=== PATIENT | female | born 1950 | race Caucasian/White ===

== ENCOUNTER → 2022-10-19 | Outpatient (CLI) | payer MEDICARE ==
[~2022-10-19] MED LIST: ASPI-1005 PO; ATOR20TA65 PO; CINN500C PO; CITA-107 PO; HYDR-4457 PO; LEVO75TA10 PO; LISI2.5T13 PO; MELO-108 PO; PANT20TA18 PO; REGADENOSON 0.4 MG/5 ML PF SYG IVP SCH; ROPI12TA2 PO
== END | disposition home or self-care (01) ==
LOC: SHCH 08:48
PROVIDERS: ATTEND Internal Medicine
DX: R94.39 Abnormal result of other cardiovascular function study (principal); R06.02 Shortness of breath
CPT/HCPCS: 78452; 96374; 93017; J2785; A9500 ×2

== ENCOUNTER 2022-11-12 05:53 | Day surgery (SDC) | payer MEDICARE ==
[2022-11-10 16:01] LABS: BASOPHILS % (AUTO) 0.3 % (0.0-5.0); EOSINOPHILS % (AUTO) 1.2 % (0.0-8.0); HEMATOCRIT 45.3 % (36-48); LYMPHOCYTES % (AUTO) 34.3 % (21.0-51.0); MEAN CORPUSCULAR HEMOGLOBIN 30.7 pg (27.0-33.0); MEAN CORPUSCULAR HGB CONC 32.7 g/dL (32.0-36.0); MONOCYTES % (AUTO) 7.9 % (3.0-13.0); NEUTROPHILS % (AUTO) 56.1 % (40.0-77.0); PLATELET COUNT (AUTO) 232 K/uL (130-400); RED BLOOD CELL COUNT(AUTO) 4.82 MIL/uL (4.00-5.50); RED CELL DISTRIBUTION WIDTH 13.2 % (11.0-15.5)
[2022-11-10 16:07] LABS: APPEARANCE,URINE CLEAR (CLEAR); BILIRUBIN,URINE NEGATIVE (NEGATIVE); COLOR,URINE COLORLESS (YELLOW); GLUCOSE, URINE (UA) NEGATIVE (NEGATIVE); KETONES,URINE NEGATIVE (NEGATIVE); LEUKOCYTE ESTERASE ,URINE NEGATIVE Leu/uL (NEGATIVE); NITRATE,URINE NEGATIVE (NEGATIVE); OCCULT BLOOD,URINE NEGATIVE (NEGATIVE); PH,URINE 6.5 (5.0-8.0); PROTEIN,URINE NEGATIVE (NEGATIVE); UROBILINOGEN,URINE 0.2 mg/dL (0.2-1.0)
[2022-11-10 16:16] LABS: INR 0.99 (0.85-1.15); PROTHROMBIN TIME 10.8 SEC (9.6-11.6)
[2022-11-10 16:17] LABS: CREATININE 0.9 mg/dL (0.5-1.5); POTASSIUM 4.3 mmol/L (3.5-5.1)
[2022-11-10 16:18] LABS: PARTIAL THROMBOPLASTIN TIME 32.3 SEC (26.3-35.5)
[2022-11-10 16:21] VITALS: BP 154/70
[2022-11-10 16:29] LABS: B-TYPE NATRIURETIC PEPTIDE 7 pg/mL (0-100)
[2022-11-10 16:45] LABS: RBC,URINE 0-1 /HPF (0-1); SQUAMOUS EPITHELIAL CELL,UR RARE /HPF (0-2); WBC,URINE 0-1 /HPF (0-1)
[~2022-11-12] VITALS: Ht 162.6 cm; Wt 93.3 kg
[2022-11-12] VITALS (8 sets, daily range): BP systolic 108–139; BP diastolic 51–74
[~2022-11-12 05:53] MED LIST changes: -ASPI-1005 PO; -ATOR20TA65 PO; -CINN500C PO; +FURO20TA4 PO; -HYDR-4457 PO; +LEVO75CA5 PO; -REGADENOSON 0.4 MG/5 ML PF SYG IVP SCH; +ROPI0.257 PO; -ROPI12TA2 PO; +ROSU20TA31 PO
[2022-11-12] MEDS ORDERED: 0.9%NACL 1000ML 1,000 ML IV ONE (06:24)
[2022-11-12] MEDS ORDERED: VERAPAMIL HCL 2.5 MG/ML VIAL ONE (07:11)
[2022-11-12] MEDS ORDERED: MIDAZOLAM HCL 1 MG/ML 2ML VIAL ONE (07:12)
[2022-11-12] MEDS ORDERED: FENTANYL CITRATE PF 50 MCG/1 ML 2ML VIAL ONE (07:12)
[2022-11-12] MEDS ORDERED: HEPARIN 10,000 UNIT/10ML (1,000 UNIT/ML) VIAL ONE (07:12)
[2022-11-12] MEDS ORDERED: IOHEXOL 350 MG/ML 100ML INFUS..BTL IV ONE (07:12)
[2022-11-12] MEDS ORDERED: LIDOCAINE HCL 400MG/20ML VIAL ONE (07:12)
[2022-11-12] MEDS ORDERED: NITROGLYCERIN 50MG VIAL ONE (07:12)
[2022-11-12] MEDS ORDERED: 0.9%NACL 1000ML 1,000 ML IV SCH (08:30)
[2022-11-12] MEDS ORDERED: GLUCAGON 1MG KIT 1 MG ML IM PRN (08:30)
[2022-11-12] MEDS ORDERED: DEXTROSE 50%-WATER 50 ML DISP.SYRIN IV PRN (08:30)
== END 2022-11-12 11:40 | disposition home or self-care (01) ==
LOC: DAH 05:53
PROVIDERS: ATTEND Internal Medicine
DX: I25.10 Atherosclerotic heart disease of native coronary artery without angina pectoris (principal); E78.5 Hyperlipidemia, unspecified; E03.9 Hypothyroidism, unspecified; M19.90 Unspecified osteoarthritis, unspecified site; E11.9 Type 2 diabetes mellitus without complications; J44.9 Chronic obstructive pulmonary disease, unspecified; Z79.01 Long term (current) use of anticoagulants; Z88.8 Allergy status to other drugs, medicaments and biological substances; Z88.0 Allergy status to penicillin; Z90.89 Acquired absence of other organs; Z90.49 Acquired absence of other specified parts of digestive tract; Z90.710 Acquired absence of both cervix and uterus; Z82.49 Family history of ischemic heart disease and other diseases of the circulatory system; Z83.3 Family history of diabetes mellitus; Z83.438 Family history of other disorder of lipoprotein metabolism and other lipidemia; Z80.9 Family history of malignant neoplasm, unspecified; Z98.890 Other specified postprocedural states; Z87.891 Personal history of nicotine dependence; Z72.89 Other problems related to lifestyle
CPT/HCPCS: 80048; 83880; 85025; 85610; 85730; 81001; 36415; 71045; 93005; 93458; 82948 ×2; C1769; C1894; J3010; J3490 ×3; J7030; J1644 ×2; J2250; Q9967; A4215; A4222; A4221; A4663; A4216; A4606; Q9965; A4223 ×3; 99156; 99157

== ENCOUNTER 2025-01-02 06:52 | Observation (INO) | payer OTHER ==
[2024-12-27 11:17] VITALS: BP 141/58; PULSE 63; RESP 18; TEMP 97.5
[2024-12-27 11:24] LABS: BASOPHILS # (AUTO) 0.02 K/uL (0.00-0.20); BASOPHILS % (AUTO) 0.3 % (0.0-5.0); EOSINOPHILS % (AUTO) 1.5 % (0.0-8.0); HEMATOCRIT 42.9 % (36-48); IMMATURE GRANULOCYTE ABSOLUTE 0.01 K/uL (0-1); LYMPHOCYTES # (AUTO) 2.5 K/uL (1.0-4.8); LYMPHOCYTES % (AUTO) 38.4 % (21.0-51.0); MEAN CORPUSCULAR HEMOGLOBIN 30.5 pg (27.0-33.0); MEAN CORPUSCULAR HGB CONC 33.1 g/dL (32.0-36.0); MEAN CORPUSCULAR VOLUME 92.3 fL (79-99); MONOCYTES # (AUTO) 0.5 K/uL (0.1-1.0); MONOCYTES % (AUTO) 8.2 % (3.0-13.0); NEUTROPHILS # (AUTO) 3.3 K/uL (1.8-7.7); NEUTROPHILS % (AUTO) 51.4 % (40.0-77.0); PLATELET COUNT (AUTO) 206 K/uL (130-400); RED BLOOD CELL COUNT(AUTO) 4.65 MIL/uL (4.00-5.50); RED CELL DISTRIBUTION WIDTH 13.6 % (11.0-15.5); WHITE BLOOD COUNT (AUTO) 6.5 K/uL (4.8-10.8)
[2024-12-27 11:32] LABS: APPEARANCE,URINE CLEAR (CLEAR); BILIRUBIN,URINE NEGATIVE (NEGATIVE); COLOR,URINE COLORLESS (YELLOW); GLUCOSE, URINE (UA) NEGATIVE (NEGATIVE); KETONES,URINE NEGATIVE (NEGATIVE); LEUKOCYTE ESTERASE ,URINE NEGATIVE Leu/uL (NEGATIVE); NITRATE,URINE NEGATIVE (NEGATIVE); OCCULT BLOOD,URINE NEGATIVE (NEGATIVE); PH,URINE 6.5 (5.0-8.0); PROTEIN,URINE NEGATIVE (NEGATIVE); UROBILINOGEN,URINE 0.2 mg/dL (0.2-1.0)
[2024-12-27 11:33] LABS: ADD UA MICROSCOPIC NO
[2024-12-27 11:35] LABS: INR 1.06 (0.85-1.15); PROTHROMBIN TIME 11.2 SEC (9.6-11.6)
--- NOTE | 2024-12-27 11:35 | NUR ---
RE: IS IS INITIAL TEACHING DONE BY RT TAMMY DURING PREOP
[2024-12-27 11:37] LABS: PARTIAL THROMBOPLASTIN TIME 30.8 SEC (26.3-35.5)
[~2025-01-02] VITALS: Ht 162.6 cm; Wt 93.9 kg
[2025-01-02] VITALS (31 sets, daily range): BP systolic 119–159; BP diastolic 57–84; PULSE 71–99; RESP 15–20; TEMP 97.1–98.2; O2SAT 99
[~2025-01-02 06:52] MED LIST changes: +LEVO100C5 PO; -LEVO75CA5 PO; -LEVO75TA10 PO; -MELO-108 PO; -ROPI0.257 PO; -ROSU20TA31 PO; +ROSU20TA98 PO
[2025-01-02] MEDS ORDERED: VIT1CAPS5 PO (07:42)
[2025-01-02] MEDS ORDERED: ketOROlac 30MG VIAL (30MG/ML) ONE (07:42)
[2025-01-02] MEDS ORDERED: TRANEXAMIC ACID 1000MG/10ML ONE (07:42)
[2025-01-02] MEDS ORDERED: MELO-108 PO (07:42)
[2025-01-02] MEDS ORDERED: ROPivacaine 0.5% 5MG/ML 30ML ONE (07:42)
[2025-01-02] MEDS: ROPivacaine 0.5% 5MG/ML 30ML IJ ONE (07:49)
[2025-01-02] MEDS: 0.9%NACL 1000ML 1,000 ML IV ONE (07:54)
[2025-01-02] MEDS ORDERED: ALBUMIN (HUMAN) 5% 250 ML IV ONE (08:25)
[2025-01-02] MEDS ORDERED: LIDOCAINE PF 100MG/5ML (2%) SYRINGE 5ML ONE (08:26)
[2025-01-02] MEDS ORDERED: ketaMINE 50MG/ML SYRINGE 50 MG/ML DISP.SYRIN ONE (08:26)
[2025-01-02] MEDS ORDERED: ondanSETRON 4MG INJ ONE (08:27)
[2025-01-02] MEDS ORDERED: dexaMETHasone SOD PHOSPHATE 10MG/ML 1ML VIAL ONE (08:27)
[2025-01-02] MEDS ORDERED: rocuRONium bROMide 10MG/1ML 5ML VL ONE (08:27)
[2025-01-02] MEDS ORDERED: SUCCINYLCHOLINE CHLORIDE 20 MG/ML 10 ML VIAL ONE (08:27)
[2025-01-02] MEDS ORDERED: GLYCOPYRROLATE 0.2 MG/ML 5 ML VIAL ONE (08:27)
[2025-01-02] MEDS ORDERED: proPOFol 10 MG/ML 20ML VIAL IV ONE (08:27)
[2025-01-02] MEDS ORDERED: NEOSTIGMINE METHYLSULFATE 1MG/ML IV ONE (08:27)
[2025-01-02] MEDS ORDERED: FENTanyl CITRate PF 50 MCG/1 ML 2ML VIAL ONE ×3 (08:28→10:27)
[2025-01-02] MEDS ORDERED: MIDAZOLAM HCL 1 MG/ML 2ML VIAL ONE (08:28)
[2025-01-02] MEDS: ceFAZolin SODIUM 2 GM VIAL IVPB ONE (08:49)
[2025-01-02] MEDS ORDERED: PoTASSium chl 10% ELIXIR 20MEQ 20 MEQ/15 ML UDCUP PO PRN (09:00)
[2025-01-02] MEDS ORDERED: FERROUS FUMARATE 324 MG TABLET PO PRN (09:00)
[2025-01-02] MEDS ORDERED: PoTASSium chloRIDE 20MEQ/100ML 100 ML IV PRN (09:00)
[2025-01-02] MEDS ORDERED: PoTASSium chloRIDE 20MEQ ER 20 MEQ ERTAB PO PRN (09:00)
[2025-01-02] MEDS ORDERED: CYCLOBENZAPRINE HCL 10 MG TABLET PO PRN (09:00)
[2025-01-02] MEDS ORDERED: CALCIUM CARB 500MG PO PRN (09:00)
[2025-01-02] MEDS ORDERED: HYDROcodone/APAP 5/325 1 TAB TABLET PO PRN ×2 (09:00→09:30)
[2025-01-02] MEDS ORDERED: ondanSETRON 4MG INJ IVP PRN (09:00)
--- NOTE | 2025-01-02 09:04 | DS ---
Discharge Summary Hospital Course Summary: The patient was admitted to the hospital postoperatively on 01/02/2025 after undergoing left total knee arthroplasty. They did well with routine postoperative pain control. They worked well with physical therapy. They developed some acute blood loss anemia but remained asymptomatic. The hospital course was otherwise uncomplicated. They were subsequently able to be discharged on postoperative day [] once discharge arrangements were made with []. Lumber Trimmer(s): None Procedure(s): Left total knee arthroplasty 01/02/2025 Assessment/Plan: ASSESSMENT: Status post left total knee arthroplasty doing well Acute blood loss anemia asymptomatic PLAN: See discharge instructions Discharge Instructions: Begin working with home health physical therapy. Dressing may be removed 01/04/2025 and left open to air. Showers ok allowing soap and water to run over the wound. Pat dry. Do not submerge wound in tub/pool. Do not apply ointments. Do not apply Betadine. Do not apply peroxide. Ice packs to decrease pain/swelling. Prescriptions have been sent to the pharmacy: *[place] 5/325mg 1-2 tab every 6 hours as needed for severe pain. (please call for refills) Cyclobenzaprine 5mg 1 tab every 8 hours as needed for muscle spasm pain. Gabapentin 100mg 1 tab every 8 hours (may discontinue if drowsy). Colace 100mg 1 tab orally twice a day as needed for constipation. Aspirin 325mg twice a day for 30 days to prevent blood clots. Call for a follow-up appointment in 2-3 weeks at [facility]. Home Medications: Reported Medications Meloxicam (Meloxicam) 15 Mg Tablet, 1 TAB PO DAILY PRN for PAIN for 30 Days, #30 TAB 0 Refills 01/02/25 Vit A/Vit C/Vit E/Zinc/Copper (Preservision Areds Softgel) [phone] Capsule, 1 CAP PO BID for 30 Days, #60 CAP 0 Refills 01/02/25 Levothyroxine Sodium (Levothyroxine) 100 Mcg Capsule, 100 MCG PO ACBKFST, CAP 12/27/24 Furosemide (Furosemide) 20 Mg Tablet, 20 MG PO AM, TAB 11/10/22 Rosuvastatin Calcium (Rosuvastatin Calcium) 20 Mg Tablet, 20 MG PO HS, TAB 11/10/22 Pantoprazole Sodium (Pantoprazole Sodium) 20 Mg Tablet.dr, 20 MG PO DAILY, TAB 07/01/20 Lisinopril (Lisinopril) 2.5 Mg Tablet, 2.5 MG PO HS, TAB 07/01/20 Citalopram Hydrobromide (Citalopram HBr) 20 Mg Tablet, 20 MG PO AM, TAB 07/01/20 Discontinued Reported Medications Ropinirole HCl (Ropinirole HCl) 0.25 Mg Tablet, 0.25 MG PO HS, TAB 11/10/22 Levothyroxine Sodium (Levothyroxine) 75 Mcg Capsule, 150 MCG PO QSUNWED, CAP 11/10/22 Meloxicam (Meloxicam) 15 Mg Tablet, 15 MG PO DAILY, TAB 07/01/20 Levothyroxine Sodium (Levothyroxine Sodium) 75 Mcg Tablet, 75 MCG PO MTTFSAT, TAB 07/01/20 CAMILA BURNETT MD Jan 02, 2025 09:04
--- NOTE | 2025-01-02 10:41 | OP ---
Operative Note: DATE OF PROCEDURE: 01/02/25 PREOPERATIVE DIAGNOSIS: Left knee osteoarthritis. POSTOPERATIVE DIAGNOSIS: Left knee osteoarthritis. PROCEDURE PERFORMED: Left knee total knee arthroplasty. SURGEON: Ruthann Sánchez MD RESPIRATORY CARE FACULTY: Maru Guillaume and Lolis Zavala. ANESTHESIA: General with adductor canal block. ANESTHESIA: HEAD TENNIS COACH Urbano Coates. ESTIMATED BLOOD LOSS: 50cc. COMPLICATIONS: None. DRAINS: None. SPECIMENS REMOVED: resected bone. Not sent to pathology. IMPLANTS: [employer] BCS size 4 Oxinium femur, size 2 tibial base plate, 32 mm patella, 9 mm polyethylene STATEMENT OF MEDICAL NECESSITY: The patient is a 74-year-old female who suffers from left knee osteoarthritis failing conservative management. After discussion of the risks, benefits, and alternatives with the patient, they voluntarily agreed to undergo the aforementioned procedure. DESCRIPTION OF PROCEDURE: Patient was properly identified in the preoperative holding area. Surgical site marking was verified and surgery consent reviewed. The patient was then taken to the operating room and placed in supine position on the OR table. After induction of general anesthesia, preoperative antibiotics were given, all bony prominences were well-padded, and a well padded tourniquet was applied but not inflated at this time. The left lower extremity was then prepped and draped in usual sterile fashion. Surgical time out was done verifying correct surgery, side, site, and location to be performed. We then began the procedure by exsanguinating the limb using an Esmarch and inflating the tourniquet to 350 mmHg. At this point, we made an anterior midline incision using a 10 blade, coming down sharply the level of the fascia. Skin flaps were elevated medially and laterally. We then obtained a clean 10 blade and performed a standard medial parapatellar arthrotomy. We excised the infrapatellar fat pad. We performed our soft tissue releases off of the tibia. We transected the ACL and removed the anterior portion of the medial & lateral meniscus. We then brought the knee into hyperflexion with the patella everted. We used our entry reamer to enter the femoral canal. We then placed our intramedullary cutting guide for our distal femoral cutting block. We then performed our distal femoral osteotomy ensuring appropriate rotation and removed the bony wafer. We then removed these pins and block and then used jig 2 to size the distal femur with the after mentioned size found. We then placed our 5-in-1 cutting block in 3 degrees of external rotation and took our 5 cuts ensuring to protect the patellar tendon and the collateral ligaments. We then removed the cutting block and our bony fragments using a curved osteotome. We then placed our PCL retractor subluxating the tibia anteriorly. Using an extra medullary tibial cutting guide, we hung the block for our proximal tibial cut taking 2 mm off the more diseased portion. Prior to pinning this block in place, we ensured appropriate varus/valgus alignment and posterior slope similar to the [place] slope of the patient's knee. We then performed our proximal tibial osteotomy and removed the bony wafer using Bovie electrocautery to release any remaining soft tissue attachments. We then used our tibial sizing paddle and checked once more for varus & valgus alignment and found this to be appropriate. At this point, we pinned our tibial paddle in place. We then removed the PCL retractor and subluxated the tibia posteriorly while we placed our femoral trial component. We then finished preparing the notch with the reamer and box chisel. The notch portion of the trial femoral component was then placed. A posterior stabilized polyethylene, size 9 trial was placed. The knee was then taken through range of motion and found to have stable full range of motion. We then placed a bump under the ankle and everted the patella to perform our freehand cut of the undersurface the patella. We then sized our patella and reamed to the lug holes for this. We placed our trial patellar component and begin to take the knee through range of motion. The patella had slight lateral tracking a small lateral release was performed with a improve tracking afterwards. At this point we began removing our trial components and punched the tibial keel prior to removing our tibial trial component. Final components were opened and cement was mixed on the back table while we injected local cocktail in the posterior capsule. We then thoroughly irrigated out the bone and dried the bony surfaces. We cemented our tibial component in place ensuring to remove excess cement and placed our trial polyethylene. We then cemented our femoral component in place once again taking time to ensure excess cement was removed leg was brought into full extension to help squeeze the excess cement from around the femoral component. We then brought the knee back in a flexion to remove this portion of the cement at this point we placed the ankle in a bump thoroughly irrigated off the patellar component and cemented our patellar component in standard fashion again removing excess cement. While we waited for the cement to cure, we thoroughly irrigated out the wound with normal saline. Once our cement had cured, we took the knee through a range of motion and found full and stable range of motion. We then elected to use the size 9 polyethylene and removed our trial polyethylene. We impacted our final polyethylene component in place in standard fashion and took the knee through a range of motion check once more. This was satisfactory so we began to repair the arthrotomy using #1 Vicryl in interrupted [id number] fashion. Subcutaneous tissue was repaired using 2-0 Vicryl. Running subcuticular 3-0 Monocryl stitch with Dermabond placed over this for the skin. We then applied a foam barrier dressing and a pressure dressing consisting of 4 x 4's fluffs and an Torres wrap. The tourniquet was then deflated. Patient was awakened from anesthesia, and they were taken to the recovery room in stable condition. RUTHANN SÁNCHEZ MD Jan 02, 2025 10:41
[2025-01-02] MEDS: ketOROlac 15MG/ML VIAL (15MG/ML) ONE (12:09)
[2025-01-02] MEDS: IpraTROPium/alBUTERol SULFATE 3 ML SOLUTION IH ONE (12:18)
[2025-01-02] MEDS: ketOROlac 15MG/ML VIAL (15MG/ML) IV SCH (12:48)
[2025-01-02] MEDS: ceFAZolin SODIUM 2 GM VIAL ONE (12:48)
[2025-01-02] MEDS: GABApentin 100 MG CAPSULE PO SCH (12:49)
[2025-01-02] MEDS: polyETHYLene GLYCol 3350 17 GM POWD.PACK PO SCH (13:00)
[2025-01-02] MEDS: doCUSate SODIUM 100 MG CAP PO SCH (13:00)
[2025-01-02] MEDS: 0.9%NACL 1000ML 1,000 ML IV SCH (13:00)
--- NOTE | 2025-01-02 13:00 | HMCIMG ---
KNEE/PATELLA 1-2VWS LT HISTORY: Postop COMPARISON: None TECHNIQUE: 2 images of left knee were obtained status post left knee arthroplasty. FINDINGS: : Left knee arthroplasty changes are seen. There are soft tissue swelling with soft tissue emphysema. There is no acute displaced fracture or dislocation. Degenerative changes are seen. IMPRESSION: 1. Findings as described above.
[2025-01-02] MEDS: HYDROcodone/APAP 5/325 1 TAB TABLET PO PRN (13:01)
[2025-01-02] MEDS: citaLOPram 20 MG TABLET PO SCH (13:01)
[2025-01-02] MEDS: furoSEMIDE 20 MG TABLET PO SCH (13:01)
[2025-01-02] MEDS: ceFAZolin SODIUM 2 GM VIAL IVPB SCH (16:14)
--- NOTE | 2025-01-02 17:50 | NUR ---
MET W PT/SPOUSE FOR DC PLANNING= TITA PT LIVES WITH SPOUSE IN HOME THAT HAS " 16 STEPS UP INTO IT" PATIENT STATES THAT SHE DOES NOT DRIVE AND IS NOT ACTIVE SHE USED TO BE STATES HAS A WALKER CANE AND SHOWER BENCH DENIES FINANCIAL STRAIN. SPOUSE TRANSPORTS TO APPOINTMENTS. PT AND SPOUSE REQUESTING ELSY WHITE. CJ SIGNED, PKT CREATED, SENT TO REP VIA EMAIL WITH FIRST PT NOTES 'PASSR PENDING Addendum: 01/03/25 at 1754 by VERO HAMILTON RN CM Amended: Links added.
[2025-01-02] MEDS: atorVAStatin 40 MG TABLET PO SCH (20:00)
[2025-01-02] MEDS: LISINOPRIL 2.5 MG TABLET PO SCH (20:00)
[2025-01-02] MEDS: BENZOCAINE/MENTH/CETYLPYRD CL 1 EACH LOZENGE MM PRN (20:33)
[2025-01-02] MEDS: traMADol HCL 50 MG TABLET PO PRN (20:36)
[2025-01-02] MEDS: VIT C PO SCH (21:00)
[2025-01-02] MEDS: VIT A PO SCH (21:00)
[2025-01-02] MEDS: VIT E PO SCH (21:00)
[2025-01-02] MEDS: ZINC PO SCH (21:00)
[2025-01-02] MEDS: COPPER PO SCH (21:00)
[2025-01-03] VITALS (9 sets, daily range): BP systolic 101–146; BP diastolic 51–76; PULSE 63–89; RESP 16–21; TEMP 97.9–98.5; O2SAT 94–99
[2025-01-03 04:01] LABS: HEMATOCRIT 35.5 % (36-48); MEAN CORPUSCULAR HEMOGLOBIN 30.6 pg (27.0-33.0); MEAN CORPUSCULAR VOLUME 92.9 fL (79-99); RED BLOOD CELL COUNT(AUTO) 3.82 MIL/uL (4.00-5.50); WHITE BLOOD COUNT (AUTO) 13.1 K/uL (4.8-10.8)
[2025-01-03 04:20] LABS: POTASSIUM 4.5 mmol/L (3.5-5.1)
[2025-01-03] MEDS: levoTHYROxine 100 MCG TABLET PO SCH (06:41)
--- NOTE | 2025-01-03 08:01 | PN ---
Ortho postop day one. This morning the patient is awake alert and oriented. She is sitting at the bedside enjoying her breakfast. The Torres bandage his already been removed from the operative site and the dressing is intact. The gastrocnemius a soft nontender. Negative Homans. Reports adequate pain control overnight. Vital signs have remained stable afebrile. Laboratory results reviewed. Noted to have a drop in hemoglobin and hematocrit as expected after TKA. Patient is asymptomatic. We will address per protocol as necessary. Ice is present to the operative site. She is performing incentive spirometry appropriately with returned demonstration on point. Voiding on her own and already passing gas but no BM yet. The patient is [facility] Assessment: Status post left total knee arthroplasty. Asymptomatic acute postoperative blood loss anemia. Plan: Continue with Dr. Sánchez's TKA protocol and discharge planning. Asymptomatic acute postoperative blood loss anemia addressed per protocol as necessary. Vitals/Labs Vital Signs Date Time Temp Pulse Resp B/P (MAP) Pulse Ox O2 Delivery O2 Flow Rate FiO2 01/03/25 07:57 98.4 80 17 146/71 99 Room Air 01/03/25 01:42 0 21 Laboratory Tests 01/03/25 03:51 Medications Current Medications Cefazolin Sodium 2 gm STK-MED ONCE .ROUTE; Start 01/02/25 at 07:17; Stop 01/02/25 at 07:17; Status DC Sodium Chloride 1,000 ml @ As Directed STK-MED ONCE IV Last administered on 01/02/25at 07:54; Start 01/02/25 at 07:17; Stop 01/02/25 at 07:17; Status DC Tranexamic Acid 1,000 mg STK-MED ONCE .ROUTE; Start 01/02/25 at 07:42; Stop 01/02/25 at 07:44; Status DC Ketorolac Tromethamine 30 mg STK-MED ONCE .ROUTE; Start 01/02/25 at 07:42; Stop 01/02/25 at 07:44; Status DC Ropivacaine 150 mg STK-MED ONCE .ROUTE; Start 01/02/25 at 07:42; Stop 01/02/25 at 07:44; Status DC Ropivacaine 150 mg STK-MED ONCE IJ Last administered on 01/02/25at 07:49; Start 01/02/25 at 07:49; Stop 01/02/25 at 07:56; Status DC Ketorolac Tromethamine 30 mg STK-MED ONCE IVP Last administered on 01/02/25at 07:50; Start 01/02/25 at 07:50; Stop 01/02/25 at 07:56; Status DC Albumin Human 250 ml @ As Directed STK-MED ONCE IV; Start 01/02/25 at 08:25; Stop 01/02/25 at 08:26; Status DC Ketamine HCl 50 mg STK-MED ONCE .ROUTE; Start 01/02/25 at 08:26; Stop 01/02/25 at 08:26; Status DC Lidocaine HCl 100 mg STK-MED ONCE .ROUTE; Start 01/02/25 at 08:26; Stop 01/02/25 at 08:27; Status DC Succinylcholine Chloride 200 mg STK-MED ONCE .ROUTE; Start 01/02/25 at 08:27; Stop 01/02/25 at 08:27; Status DC Dexamethasone Sodium Phosphate 10 mg STK-MED ONCE .ROUTE; Start 01/02/25 at 08:27; Stop 01/02/25 at 08:27; Status DC Glycopyrrolate 1 mg STK-MED ONCE .ROUTE; Start 01/02/25 at 08:27; Stop 01/02/25 at 08:27; Status DC Propofol 200 mg STK-MED ONCE IV; Start 01/02/25 at 08:27; Stop 01/02/25 at 08:28; Status DC Neostigmine Methylsulfate 10 mg STK-MED ONCE IV; Start 01/02/25 at 08:27; Stop 01/02/25 at 08:28; Status DC Ondansetron HCl 4 mg STK-MED ONCE .ROUTE; Start 01/02/25 at 08:27; Stop 01/02/25 at 08:28; Status DC Rocuronium [place] 50 mg STK-MED ONCE .ROUTE; Start 01/02/25 at 08:27; Stop 01/02/25 at 08:28; Status DC Fentanyl Citrate 100 mcg STK-MED ONCE .ROUTE; Start 01/02/25 at 08:28; Stop 01/02/25 at 08:28; Status DC Midazolam HCl 2 mg STK-MED ONCE .ROUTE; Start 01/02/25 at 08:28; Stop 01/02/25 at 08:28; Status DC Sodium Chloride 1,000 ml @ 100 mls/hr Q10H IV Last administered on 01/02/25at 13:00; Start 01/02/25 at 09:00; Stop 01/03/25 at 08:59 Polyethylene Glycol 17 gm DAILY PO Last administered on 01/02/25at 13:00; Start 01/02/25 at 09:00; Stop 02/01/25 at 08:59 Bisacodyl 10 mg DAILY PRN RC; Start 01/05/25 at 09:00; Stop 02/04/25 at 08:59 Ketorolac Tromethamine 15 mg Q6H PRN IV; Start 01/03/25 at 09:00; Stop 01/08/25 at 08:59 Ferrous Fumarate 324 mg DAILY PRN PO; Start 01/02/25 at 09:00; Stop 02/01/25 at 08:59 Ondansetron HCl 4 mg Q6H PRN IVP; Start 01/02/25 at 09:00; Stop 02/01/25 at 08:59 Calcium Carbonate 500 mg Q12H PRN PO; Start 01/02/25 at 09:00; Stop 02/01/25 at 08:59 Cefazolin Sodium 2 gm Q8H IVPB Last administered on 01/02/25at 21:26; Start 01/02/25 at 14:00; Stop 01/02/25 at 22:01; Status DC Cyclobenzaprine HCl 5 mg Q8H PRN PO; Start 01/02/25 at 09:00; Stop 02/01/25 at 08:59 Gabapentin 100 mg TID PO Last administered on 01/02/25at 20:00; Start 01/02/25 at 09:00; Stop 02/01/25 at 08:59 Aspirin 325 mg DAILY PO; Start 01/03/25 at 09:00; Stop 02/02/25 at 08:59 Ketorolac Tromethamine 15 mg Q8H IV Last administered on 01/03/25at 00:55; Start 01/02/25 at 09:00; Stop 01/03/25 at 01:01; Status DC Docusate Sodium 100 mg BID PO Last administered on 01/02/25at 19:59; Start 01/02/25 at 09:00; Stop 02/01/25 at 08:59 Potassium Chloride 100 ml @ 100 mls/hr AD PRN IV; Start 01/02/25 at 09:00; Stop 02/01/25 at 08:59 Potassium Chloride 20 meq AD PRN PO; Start 01/02/25 at 09:00; Stop 02/01/25 at 08:59 Potassium Chloride 20 meq AD PRN PO; Start 01/02/25 at 09:00; Stop 02/01/25 at 08:59 Tramadol HCl 50 mg Q6H PRN PO Last administered on 01/02/25at 20:36; Start 01/02/25 at 09:00; Stop 01/07/25 at 08:59 Acetaminophen/ Hydrocodone Bitart Q4H PRN PO; Start 01/02/25 at 09:00; Stop 01/02/25 at 09:15; Status DC Citalopram Hydrobromide 20 mg AM PO Last administered on 01/02/25at 13:01; Start 01/02/25 at 09:00; Stop 02/01/25 at 08:59 Furosemide 20 mg AM PO Last administered on 01/02/25at 13:01; Start 01/02/25 at 09:00; Stop 02/01/25 at 08:59 Lisinopril 2.5 mg HS PO Last administered on 01/02/25at 20:00; Start 01/02/25 at 21:00; Stop 02/01/25 at 20:59 Levothyroxine Sodium 100 mcg SYN PO Last administered on 01/03/25at 06:41; Start 01/03/25 at 06:30; Stop 02/02/25 at 06:29 Pantoprazole Sodium 20 mg DAILY PO; Start 01/03/25 at 09:00; Stop 02/02/25 at 08:59 Atorvastatin Calcium 80 mg HS PO Last administered on 01/02/25at 20:00; Start 01/02/25 at 21:00; Stop 02/01/25 at 20:59 Home Med Vit A/Vit C/ Vit E/Zinc/ Geophysical Observer... BID PO; Start 01/02/25 at 21:00; Stop 02/01/25 at 20:59 Acetaminophen/ Hydrocodone Bitart 1 tab Q4H PRN PO; Start 4/2/25 at 09:30; Stop 01/07/25 at 09:29 Acetaminophen/ Hydrocodone Bitart 2 tab Q4H PRN PO Last administered on 01/03/25at 03:31; Start 01/02/25 at 09:30; Stop 01/07/25 at 09:29 Cefazolin Sodium 2 gm STK-MED ONCE IVPB Last administered on 01/02/25at 08:49; Start 01/02/25 at 08:49; Stop 01/02/25 at 09:26; Status DC Tranexamic Acid 1,000 mg STK-MED ONCE IV Last administered on 01/02/25at 08:52; Start 01/02/25 at 08:52; Stop 01/02/25 at 09:26; Status DC Fentanyl Citrate 100 mcg STK-MED ONCE .ROUTE; Start 01/02/25 at 09:41; Stop 01/02/25 at 09:41; Status DC Fentanyl Citrate 100 mcg STK-MED ONCE .ROUTE; Start 01/02/25 at 10:27; Stop 01/02/25 at 10:27; Status DC Albuterol 1 UDVIAL ONCE ONCE IH Last administered on 01/02/25at 12:18; Start 01/02/25 at 12:00; Stop 01/02/25 at 12:02; Status DC Ketorolac Tromethamine 15 mg STK-MED ONCE .ROUTE Last administered on 01/02/25at 12:09; Start 01/02/25 at 12:07; Stop 01/02/25 at 12:07; Status DC Benzocaine 1 each Q4H PRN MM Last administered on 01/02/25at 20:33; Start 01/02/25 at 20:30; Stop 02/01/25 at 20:29 BAIRON CANELA NP Jan 03, 2025 08:01
[2025-01-03] MEDS: ASPIRIN 325MG EC TAB PO SCH (08:16)
[2025-01-03] MEDS: PANTOPrazole 40 MG TAB DR PO SCH (08:17)
[2025-01-03] MEDS ORDERED: ketOROlac 15MG/ML VIAL (15MG/ML) IV PRN (09:00)
--- NOTE | 2025-01-03 15:00 | NUR ---
ORTHO COORDINATOR: TEACHING REGARDING DVT AND PNEUMONIA PREVENTION, PAIN MANAGEMENT AND PAIN EXPECTATIONS. PATIENT UP TO CHAIR. B SCD SLEEVES AND MACHINE IN ROOM. INCENTIVE SPIROMETER ON BEDSIDE TRAY. PATIENT RETURN DEMONSTRATED PROPER USE OF INCENTIVE SPIROMETER AND FOOT FLEXION/EXTENSION EXERCISES. RATIONALE PROVIDED. PATIENT REPORTS PAIN UNDER CONTROL. REINFORCED PAIN MEDICATIONS MUST BE REQUESTED. REVIEWED NUMERIC PAIN SCALE. PATIENT PLANS TO DISCHARGE TO REHAB. ENCOURAGED PATIENT TO CONTINUE WITH DVT AND PNEUMONIA EXERCISES. ENCOURAGED PATIENT TO CONTINUE PREMEDICATING PRIOR TO PHYSICAL THERAPY. PATIENT VERBALIZED UNDERSTANDING TO ALL INSTRUCTIONS. NO ADDITIONAL QUESTIONS/CONCERNS AT THIS TIME.
[2025-01-04 03:18] VITALS: BP 95/55; PULSE 79; RESP 20; TEMP 98.3
[2025-01-04 08:00] VITALS: BP 103/54; PULSE 73; RESP 19; TEMP 97.9; O2SAT 95
--- NOTE | 2025-01-04 11:15 | NUR ---
ORTHO COORDINATOR: PATIENT UP TO REST ROOM.
[2025-01-04 12:00] VITALS: BP 114/60; PULSE 83; RESP 19; TEMP 98.3
[2025-01-04] MEDS ORDERED: ASPI-891 PO (15:19)
[2025-01-04] MEDS ORDERED: DOCU-116 PO (15:19)
[2025-01-04] MEDS ORDERED: GABA100C PO (15:19)
[2025-01-04] MEDS ORDERED: CYCL-309 PO (15:19)
[2025-01-04] MEDS ORDERED: HYDR-4060 PO (15:19)
[2025-01-05] MEDS ORDERED: BisaCODYL 10 MG SUPP.RECT RC PRN (09:00)
== END 2025-01-04 16:45 ==
LOC: DAH 06:52 → DAHIP 06:53 → DAH 06:53 → 4DH 12:23
PROVIDERS: ADMIT Student in an Organized Health Care Education/Training Program; ATTEND Student in an Organized Health Care Education/Training Program
DX: M17.12 Unilateral primary osteoarthritis, left knee (principal); G89.18 Other acute postprocedural pain; D62 Acute posthemorrhagic anemia; J44.9 Chronic obstructive pulmonary disease, unspecified; E11.9 Type 2 diabetes mellitus without complications; E03.9 Hypothyroidism, unspecified; E78.5 Hyperlipidemia, unspecified; Z79.899 Other long term (current) drug therapy
CPT/HCPCS: 85025; 85610; 85730; 87086; 84134; 86140; 81003; 36415 ×2; 87641; 64447; 27447; 96365; 96366; 96375; 82948 ×2; 73560; 97161; 97116 ×5; 94640; 96376; 80048; 85027; 97530 ×5; G0378 ×49; A4663; A4600; P9045; J3010 ×3; J3490 ×5; J1100; J0330; J7030; J2003; J2250; J2704; J2405; J1885 ×5; J2710; J2795 ×2; J0690 ×4; C1713 ×2; C1776 ×2; A4649 ×2; A4930; A6255; A5120; A4215; A4223 ×2; A4213; A4222; A4221; A4216